=== PATIENT | male | born 1985 | race Caucasian/White ===

== ENCOUNTER 2024-03-23 21:05 | Emergency (ER) | payer OTHER ==
[~2024-03-23] VITALS: Ht 193 cm; Wt 117.9 kg
[2024-03-23 21:16] VITALS: BP 142/80; PULSE 91; RESP 11; O2SAT 96
[2024-03-23 22:00] VITALS: O2SAT 97
[2024-03-24 00:25] VITALS: BP 116/78; PULSE 74; RESP 11; O2SAT 99
== END 2024-03-24 05:46 | disposition home or self-care (01) ==
LOC: MED 21:05
DX: T40.414A Poisoning by fentanyl or fentanyl analogs, undetermined, initial encounter (principal); T43.654A Poisoning by methamphetamines, undetermined, initial encounter; S81.802A Unspecified open wound, left lower leg, initial encounter; Y92.89 Other specified places as the place of occurrence of the external cause
CPT/HCPCS: 99283